=== PATIENT | male | born 1975 | race Caucasian/White ===

== ENCOUNTER 2022-05-07 23:38 | Emergency (ER) | payer OTHER, SELFPAY ==
[2022-05-07 23:44] VITALS: BP 118/89; PULSE 103; RESP 14; TEMP 36.4; O2SAT 94
--- NOTE | 2022-05-08 00:06 | ECG_ITS ---
Measurements Intervals [place] Rate: 87 P: 34 [place]: 141 QRS: 35 QRSD: 94 T: 56 QT: 351 QTc: 424 Interpretive Statements SINUS RHYTHM WITH MARKED SINUS ARRHYTHMIA NONSPECIFIC T-WAVE ABNORMALITY BORDERLINE ECG NO PREVIOUS ECG AVAILABLE FOR COMPARISON Electronically Signed On 05-08-2022 8:06:40 OXYACETYLENE BURNER by Mannie Mishra M.D.
--- NOTE | 2022-05-08 00:08 | ED.GENADULT ---
HPI - General Adult General Chief complaint: Unspecified Stated complaint: feet swelling, pain all over, reported alcoholic Time Seen by Provider: 05/07/22 23:52 History of Present Illness HPI narrative: Patient 47-year-old gentleman who presents emergency department with chief complaint of feeling strange. Patient states for several months he has noticed that he has had tingling in his hands the patient also reports that he has had vague symptoms that has been unable to describe the patient does report that he drinks about 12 beers a day and is concerned that he has something wrong with him. Related Data Allergies Allergy/AdvReac Type Severity Reaction Status Date / Time No Known Allergies Allergy Mild Verified 05/07/22 23:39 Review of Systems Review of Systems: A 10 system review of systems was completed on the patient and is negative except for what is stated in the HPI. Nursing and ancillary documentation was reviewed. Exam Narrative: GENERAL: Well-appearing, well-nourished, and in no acute distress. HEAD: Normocephalic, atraumatic. EYES: PERRLA and EOMI. ENT: Nares clear, no rhinorrhea or epistaxis. Mucous membranes moist. NECK: Supple. CHEST: Clear to auscultation. No respiratory distress. HEART: Regular rate and rhythm. No murmur heard. Normal peripheral pulses. ABDOMEN: Soft, nontender, nondistended, normal active bowel sounds. EXTREMITIES: Normal range of motion. No edema. SKIN: Warm, dry, no rash. Scarring from previous skin grafting NEURO: No focal deficits. Alert and oriented x3. PSYCH: Normal mood and affect. Course Vital Signs Vital signs: Vital Signs Temperature 36.4 C L 05/07/22 23:44 Pulse Rate 103 H 05/07/22 23:44 Respiratory Rate 14 05/07/22 23:44 Blood Pressure 118/89 05/07/22 23:44 Pulse Oximetry 94 05/07/22 23:44 Temperature 36.4 C L 05/07/22 23:44 Pulse Rate 95 05/08/22 01:52 Respiratory Rate 14 05/08/22 01:52 Blood Pressure 127/80 05/08/22 01:52 Pulse Oximetry 99 05/08/22 01:52 Medical Decision Making [facility] Narrative Medical decision making narrative: Differential diagnosis includes electrolyte abnormality acute intoxication hepatic lobe failure, COVID-19 influenza strep infection Laboratory studies were obtained which were essentially unremarkable with the exception of a blood alcohol level of 398 the patient did have a mildly elevated lactic acid this is most likely secondary to the acute intoxication. Patient is feeling much better able to ambulate without difficulty alert and oriented and showing no signs of distress or intoxication even though his blood alcohol level is elevated. Vital Signs Vital Signs: Vital Signs Temperature 36.4 C L 05/07/22 23:44 Pulse Rate 103 H 05/07/22 23:44 Respiratory Rate 14 05/07/22 23:44 Blood Pressure 118/89 05/07/22 23:44 Pulse Oximetry 94 05/07/22 23:44 Temperature 36.4 C L 05/07/22 23:44 Pulse Rate 95 05/08/22 01:52 Respiratory Rate 14 05/08/22 01:52 Blood Pressure 127/80 05/08/22 01:52 Pulse Oximetry 99 05/08/22 01:52 Lab Data 05/08/22 00:24 05/08/22 00:24 Labs: Lab Results 05/08/22 05/08/22 05/08/22 Range/Units 00:24 00:24 00:24 WBC 6.2 (4.5-10.0) K/mm3 RBC 4.52 L (4.6-6.20) M/mm3 Hgb 17.5 (14.0-18.0) g/dL Hct 49.1 (42.0-52.0) % MCV 108.6 H (80-100) fl MCH 38.7 H (26-34) pg MCHC 35.6 (32-36) g/dl RDW 13.6 (11.5-14.5) % Plt Count 225 (150-375) k/mm3 MPV 9.2 (7.4-10.4) fl Immature Gran % (Auto) 0.3 (0-0.5) % Neut % (Auto) 55.3 (45.5-73.1) % Lymph % (Auto) 32.5 (18.3-44.2) % [place] % (Auto) 10.3 H (2.6-8.5) % Eos % (Auto) 0.8 (0-4.4) % Baso % (Auto) 0.8 (0.2-1.2) % Lymph # (Auto) 2.02 (0.9-3.2) K/mm3 [place] # (Auto) 0.6 (0.1-0.6) K/mm3 Eos # (Auto) 0.1 (0-0.3) K/mm3 Baso # (Auto) 0.1 (0.0-0.1) K/mm3 Abs Immat Gran (auto) 0.02
[2022-05-08 00:35] LABS: Basophils Absolute Auto 0.1 K/mm3 (0.0-0.1); Basophils Percent Auto 0.8 % (0.2-1.2); Eosinophils Absolute Auto 0.1 K/mm3 (0-0.3); Eosinophils Percent Auto 0.8 % (0-4.4); Hematocrit 49.1 % (42.0-52.0); Hemoglobin 17.5 g/dL (14.0-18.0); Immature Granulocyte Absolute 0.02 K/mm3 (0.00-0.031); Immature Granulocyte Percent A 0.3 % (0-0.5); Lymphocytes Absolute Auto 2.02 K/mm3 (0.9-3.2); Lymphocytes Percent Auto 32.5 % (18.3-44.2); Mean Corpuscular HGB Conc 35.6 g/dl (32-36); Mean Corpuscular Hemoglobin 38.7 pg (26-34); Mean Corpuscular Volume 108.6 fl (80-100); Mean Platelet Volume 9.2 fl (7.4-10.4); Monocytes Absolute Auto 0.6 K/mm3 (0.1-0.6); Monocytes Percent Auto 10.3 % (2.6-8.5); Neutrophils Absolute Auto 3.4 K/mm3 (1.3-6.7); Neutrophils Percent Auto 55.3 % (45.5-73.1); Platelet Count Result 225 k/mm3 (150-375); Red Blood Count 4.52 M/mm3 (4.6-6.20); Red Cell Distribution Width 13.6 % (11.5-14.5); White Blood Count 6.2 K/mm3 (4.5-10.0)
[2022-05-08 00:41] VITALS: PULSE 91; RESP 20; O2SAT 97
[2022-05-08 00:53] LABS: Alanine Aminotransferase 63 U/L (6-50); Albumin Level 4.1 g/dL (3.5-5.1); Alkaline Phosphatase 105 U/L (38-126); Anion Gap 9 mmol/L (8-16); Aspartate Amino Transferase 71 U/L (17-59); Bilirubin,Total 0.3 mg/dL (0.2-1.3); Blood Urea Nitrogen 2 mg/dL (9-20); Calcium 8.7 mg/dL (8.4-10.2); Carbon Dioxide 29 mmol/L (22-30); Chloride 100 mmol/L (98-107); Estimated CRCL calculation 128 ml/min; Estimated Glomerular Filt Rate > 60; Glucose 115 mg/dL (65-110); Potassium 3.4 mmol/L (3.4-5.0); Sodium 138 mmol/L (137-145)
[2022-05-08 00:54] LABS: Lactic Acid Reflex 2.8 mmol/L (0.7-2.0)
[2022-05-08 01:05] LABS: Ammonia 27 umol/L (9-30); Troponin I < 0.012 ng/mL (0.000-0.034)
[2022-05-08] MEDS: SODIUM CHLORIDE 0.9% IV 1,000 ML 999 ML IV CONT (01:08)
[2022-05-08 01:12] LABS: Strep Group A RT-PCR NOT DETECTED (Negative)
[2022-05-08 01:26] LABS: Ethanol 398 mg/dL (<10)
--- NOTE | 2022-05-08 01:27 | PC.NURSE ---
Pt resting comfortably in bed, NAD, updated pt on plan of care.
[2022-05-08 01:29] LABS: Amphetamine Screen Urine Negative (Negative); Barbiturate Screen Urine Negative (Negative); Benzodiazepines Screen Urine Negative (Negative); Cannabinoid Screen Urine Negative (Negative); Cocaine Screen Urine Negative (Negative); Methadone Screen Urine Negative (Negative); Opiate Screen Urine Negative (Negative); Phencyclidine Screen Urine Negative (Negative)
[2022-05-08 01:40] LABS: Appearance Urine Clear (Clear); Bilirubin Urine Negative (Negative); Blood Urine 2+ (Negative); Color Urine Yellow (Yellow); Glucose Urine UA Negative (Negative); Ketones Urine Negative (Negative); Leukocyte Esterase Ur Negative LEU/UL (Negative); Nitrate Urine Negative (Negative); Protein Urine Negative (Negative); Specific Grav Ur <= 1.005 (1.001-1.035); Urobilinogen Urine 0.2 mg/dL (<2.0)
[2022-05-08 01:42] LABS: Mucus Urine Rare /lpf; WBC Urine 0-3 /hpf
[2022-05-08 01:43] LABS: Add Urine Microscopic? YES
[2022-05-08] MEDS: THIAMINE 500 MG/NS 100 ML 500 MG/100 ML BAG 200 MG IVPB (01:50)
[2022-05-08 01:51] VITALS: PULSE 96; RESP 16; O2SAT 99
[2022-05-08 01:52] VITALS: BP 127/80; PULSE 95; RESP 14; O2SAT 99
[2022-05-08 02:01] LABS: Influenza A QL RT-PCR Negative (Negative); Influenza B QL RT-PCR Negative (Negative); SARS-CoV-2 RNA PCR Negative
[2022-05-08 03:33] LABS: Reflex Lactic Acid Yes or No Add Lactic
[2022-05-08 03:59] VITALS: BP 131/84; PULSE 89; RESP 18; TEMP 37.2; O2SAT 99
== END 2022-05-08 04:01 | disposition home or self-care (01) ==
PROVIDERS: Emergency Provider Emergency Medicine
DX: F10.10 Alcohol abuse, uncomplicated (principal); Y90.8 Blood alcohol level of 240 mg/100 ml or more; Z20.822 Contact with and (suspected) exposure to COVID-19; R94.31 Abnormal electrocardiogram [ECG] [EKG]
CPT/HCPCS: 36415; 80053; 80307; 81001; 82140; 83605; 83735; 84484; 85025; 87636; 87651; 93005; 96365; 99284; J3411; J7030